=== PATIENT | female | born 1960 | race Caucasian/White ===

== ENCOUNTER 2025-03-10 21:50 | Emergency (ER) | payer MEDICAID, MEDICARE ==
[~2025-03-10] VITALS: Ht 154.9 cm; Wt 60.8 kg
[~2025-03-10 21:50] MED LIST: ASPI-612 PO; BACL-11 PO; CALC600T35 PO; CARV-50 PO; CETI10CA PO; CLON-529 PO; DILT180C66 PO; DIPH25TA2 PO; DOXE25CA3 PO; EST1T PO; GABA300C PO; MEDR2.5T PO; OXYC10TA47 PO; VENL75CA55 PO
[2025-03-10 21:57] VITALS: BP 127/77; PULSE 100; O2SAT 99
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
[2025-03-10] MEDS ORDERED: ketorolac trometh 15mg/ml vial 15 MG/ML ML IV ONE (23:30)
[2025-03-10 23:48] VITALS: RESP 16
[2025-03-10] MEDS: ketorolac trometh 15mg/ml vial 15 MG/ML ML IM ONE (23:48)
--- NOTE | 2025-03-10 23:57 | RADIOLOGY REPORT ---
Procedure: DI HIP UNILATERAL 2 VIEWS 03/10/2025 11:32 PM TECHNIQUE: DI HIP UNILATERAL 2 VIEWS Indication: Right hip pain Comparison: None FINDINGS/IMPRESSION: No acute displaced fracture. There are degenerative changes of the right hip characterized by modera te to severe joint space narrowing.
[2025-03-11 00:14] VITALS: TEMP 96.8
== END 2025-03-11 00:16 | disposition home or self-care (01) ==
LOC: ER 21:51
DX: M25.551 Pain in right hip (principal); Z79.82 Long term (current) use of aspirin
CPT/HCPCS: 73502; 96372; 99283; J1885

== ENCOUNTER 2025-03-28 13:23 | Emergency (ER) | payer MEDICARE, MEDICAID ==
[~2025-03-28] VITALS: Ht 152.4 cm; Wt 64.8 kg
[2025-03-28 13:24] VITALS: TEMP 98.2
[2025-03-28 15:33] LABS: MEAN PLATELET VOLUME 8.0 FL (7.4-10.4); RED CELL DISTRIBUTION WIDTH 12.9 % (11.5-14.5)
[2025-03-28 15:59] LABS: CREATININE 0.73 MG/DL (0.40-0.90); TOTAL CARBON DIOXIDE 24.4 MMOL/L (24-32); eCRCL 55 ML/MIN; eGFR 80 ML/MIN
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
[2025-03-28] MEDS ORDERED: VENL150C5 PO (17:41)
[2025-03-28 17:55] LABS: LEUKOCYTE ESTERASE ,URINE NEGATIVE (Neg); NITRITES, URINE NEGATIVE (Neg); OCCULT BLOOD,URINE NEGATIVE (Neg); UA COLLECTION TYPE NON-SPECIFIED
[2025-03-28 17:58] VITALS: BP 188/89; PULSE 83; RESP 18; O2SAT 98
[2025-03-28 18:00] LABS: MUCUS STRANDS NONE SEEN /LPF (Neg); SQUAMOUS EPITHELIAL CELL,UR FEW /LPF (FEW)
== END 2025-03-28 18:01 | disposition home or self-care (01) ==
LOC: ER 13:23
DX: G44.209 Tension-type headache, unspecified, not intractable (principal); E11.65 Type 2 diabetes mellitus with hyperglycemia; F17.200 Nicotine dependence, unspecified, uncomplicated; I10 Essential (primary) hypertension; J44.9 Chronic obstructive pulmonary disease, unspecified; Z59.00 Homelessness unspecified; Z79.82 Long term (current) use of aspirin; Z79.899 Other long term (current) drug therapy
CPT/HCPCS: 36415; 80053; 81001; 83690; 85025; 99283

== ENCOUNTER 2025-05-09 18:21 | Emergency (ER) | payer MEDICARE, MEDICAID ==
[~2025-05-09] VITALS: Ht 152.4 cm; Wt 70.9 kg
[~2025-05-09 18:21] MED LIST changes: +VENL150C5 PO
[2025-05-09 19:21] LABS: MEAN PLATELET VOLUME 7.4 FL (7.4-10.4); RED CELL DISTRIBUTION WIDTH 13.2 % (11.5-14.5)
[2025-05-09 19:36] LABS: CREATININE 0.76 MG/DL (0.40-0.90); TOTAL CARBON DIOXIDE 23.8 MMOL/L (24-32); eCRCL 53 ML/MIN; eGFR 76 ML/MIN
[2025-05-09] MEDS ORDERED: iohexol 300mg/ml 100ml inj. ONE (21:01)
--- NOTE | 2025-05-09 21:55 | RADIOLOGY REPORT ---
Exam: CT CT ABDOMEN PELVIS W/ IV CONTRAST History: LLQ pain Comparison Study: None TECHNIQUE: A digital honing machine set up operator image was obtained. During the uneventful, intravenous administration of c ontrast material, multislice data acquisition was obtained through the abdomen and pelvis. The data s et was subsequently reconstructed into axial images. Images reviewed on a wrist examination is an exa mination of axial and multiplanar reformations using a variety of window levels and settings. RADIATION DOSE: DLP 569.89 mGy.cm; CTDI vol 12.8 mGy. Findings: Lungs: The lung bases are clear. Heart: No cardiomegaly or pericardial effusion. Liver: Fatty infiltration of the liver. Gallbladder: Unremarkable. Spleen: Unremarkable Pancreas: Unremarkable Adrenals: Unremarkable Kidneys: Bilateral renal cysts. GI tract: Mild wall thickening of the rectosigmoid colon without pericolonic inflammatory changes. : Unremarkable. Vasculature: Mild aortoiliac atherosclerosis. Lymphadenopathy: Absent Peritoneum: No ascites Musculoskeletal: Mild multilevel degenerative changes of the thoracolumbar spine. Soft tissues: Unremarkable Impression: 1. No acute abdominopelvic abnormalities. 2. Mild wall thickening of the rectosigmoid colon without pericolonic inflammatory changes, nonspecif ic. Colitis is not excluded. 3. Hepatic steatosis.
--- NOTE | 2025-05-09 22:32 | Physician Documentation ---
History of Present Illness ~ Chief Complaint: Abdominal Pain Stated Complaint: ABD PAIN Time Seen by MD: 20:24 Primary Medical Doctor: NONE Mode of Arrival: EMS HPI 65 year old female BIB EMS for bloody stools x 2 days (small amounts, intermittent) and LLQ abdominal pain. She has felt nauseated without vomiting, and no diarrhea. She denies urinary symptoms, fevers, cough, shortness of breath, chest pain. Medication Reconciliation Allergies: Coded Allergies: No Known Allergies (Unverified , 03/10/25) Scheduled Aspirin (Aspir 81), 1 TAB PO DAILY, (Reported) Calcium Carbonate (Calcium), 1 TAB PO DAILY, (Reported) Carvedilol* (Coreg*), 1 TABLET PO BID, (Reported) Cetirizine Hcl (Zyrtec), 10 MG PO DAILY, (Reported) Clonidine Hcl* (Catapres*), 0.1 MG PO BID, (Reported) Diltiazem Hcl CD* (Cardizem CD*), 1 CAP PO DAILY, (Reported) Doxepin HCl (Doxepin HCl), 1 CAP PO QDAY @ 2000, (Reported) Estradiol* (Estrace*), 1 TAB PO DAILY, (Reported) Gabapentin (Neurontin), 300 MG PO TID, (Reported) Medroxyprogesterone Acetate (Provera), 2.5 MG PO DAILY, (Reported) Venlafaxine HCl (Effexor Xr), 2 CAP PO DAILY Venlafaxine Hcl (Effexor Xr), 75 MG PO DAILY, (Reported) Scheduled PRN Baclofen (Baclofen), 1 TAB PO TID PRN for SPASMS, (Reported) Diphenhydramine HCl (Sleep Aid), 1 TAB PO HS PRN for sleep, (Reported) Oxycodone Hcl (Oxycodone Hcl), 10 MG PO TID PRN PRN for pain, (Reported) Past Medical History Patient History: FH: hypertension FATHER, Age: 76 MOTHER, Age: 75 Review of Systems All Other Systems at this time: Reviewed and Negative Physical Exam Vital Signs: RN Vital Signs have been reviewed: Yes, Temperature: 98.8, Heart Rate: 92, Respiratory Rate: 16, BP: 164/89, Pulse Oximetry: 99, Weight: 70.900 Oxygen Flow Rate: 0 Physical Exam HEENT: PERRL, moist oral mucosa, EOMI Pulmonary: No respiratory distress Cardiac: RRR, no murmur, rub or gallop GI: nondistended, soft, +TTP LLQ, no guarding, no rebound MSK: no deformity Skin: w/d/i, no rash Neuro: alert, nonfocal Psych: normal affect Progress Results/Orders Results/Orders Orders - DEAN ORTIZ MD Urinalysis, Cult If Indicated (05/09/25 18:36) Ct Abdomen Pelvis (05/09/25 21:30) Completed Orders - DEAN ORTIZ MD Cbc/Diff (05/09/25 18:36) Lipase (05/09/25 18:36) CMP (05/09/25 18:36) Ct Abdomen Pelvis (05/09/25 21:30) Iohexol 300mg/Ml 100ml Inj. (Omnipaque-3 (05/09/25 21:01) Vital Signs 05/09/25 05/09/25 18:30 18:58 Temp 98.8 Pulse 92 Resp 16 16 B/P (MAP) 164/89 Pulse Ox 99 O2 Flow Rate 0 Laboratory Tests Test 05/09/25 19:13 White Blood Count 7.6 Red Blood Count 4.50 Hemoglobin 13.9 Hematocrit 40.2 Mean Corpuscular Volume 89.3 Mean Corpuscular Hemoglobin 31.0 Mean Corpuscular Hemoglobin Concent 34.7 Red Cell Distribution Width 13.2 Platelet Count 343 Mean Platelet Volume 7.4 Neutrophils (%) (Auto) 59.3 Lymphocytes (%) (Auto) 34.7 Monocytes (%) (Auto) 5.8 Eosinophils (%) (Auto) 0.1 Basophils (%) (Auto) 0.1 Neutrophils # (Auto) 4.5 Lymphocytes # (Auto) 2.6 Monocytes # (Auto) 0.4 Eosinophils # (Auto) 0.0 Basophils # (Auto) 0.0 CBC Comment Sodium Level 137 Potassium Level 3.7 Chloride Level 101 Carbon Dioxide Level 23.8 L Anion Gap 12 Blood Urea Nitrogen 12 Creatinine 0.76 Estimated GFR/1.73 m2 76 BUN/Creatinine Ratio 15.8 Glucose Level 171 H Calcium Level 9.8 Total Bilirubin 0.5 Aspartate Amino Transf (AST/SGOT) 18 Alanine Aminotransferase (ALT/SGPT) 26 Alkaline Phosphatase 80 Total Protein 8.1 Albumin 4.0 Globulin 4.1 Albumin/Globulin Ratio 1.0 L Lipase 80 H Chemistry Comments Medical Decision Making Findings 65 year old female with LLQ pain. Workup demonstrated elevated lipase and CT scan with some evidence of colitis, but other laboratory studies largely unremarkable including hemoglobin. No further bloody output here today. Counseled bland diet, return precautions. Additional Comments Ddx = diverticulitis, colitis, pancreatitis, UTI, pyelonephritis, kidney stone, cystitis Departure Disposition: HOME / SELF CARE / HOMELESS Impression: Primary Impression: Colitis Condition: Stable Discharge Instructions: Abdominal Pain (Nonspecific) Referrals: NO PRIMARY CARE PROVIDER (PCP) Education Educated: Patient Educated regarding: diagnosis, treatment, prognosis, need for follow up Signature Scribe Signature: . Attestation: . DEAN ORTIZ MD May 09, 2025 22:32
[2025-05-09 22:41] VITALS: BP 152/81; PULSE 96; RESP 18; TEMP 98.6; O2SAT 99
[2025-05-09 22:41] LABS: LEUKOCYTE ESTERASE ,URINE NEGATIVE (Neg); NITRITES, URINE NEGATIVE (Neg); OCCULT BLOOD,URINE NEGATIVE (Neg)
[2025-05-09 22:43] LABS: UA COLLECTION TYPE VOIDED
== END 2025-05-09 22:44 | disposition home or self-care (01) ==
LOC: ER 18:22
DX: K52.9 Noninfective gastroenteritis and colitis, unspecified (principal); Z79.82 Long term (current) use of aspirin
CPT/HCPCS: 36415; 74177; 80053; 81003; 83690; 85025; 99285; Q9967